=== PATIENT | male | born 1965 | race Caucasian/White ===

== ENCOUNTER 2020-06-21 22:54 | Inpatient (IN) | payer MEDICAID, OTHER ==
[~2020-06-21] VITALS: Ht 170.2 cm; Wt 77.1 kg
[~2020-06-21 22:54] MED LIST: KEPPRA500 M4 ORAL; LAMICTAL25 M1 PO; MIRTAZAPINE30 MG ORAL
[2020-06-21 23:00] VITALS: BP 131/81
--- NOTE | 2020-06-21 23:14 | Emergency Room Report ---
History of Present Illness General Chief Complaint: Seizure Source: Patient, Medical Record, EMS, Law Enforcement Present Illness HPI This is a 54-year-old homeless male who has a history of seizure and alcohol abuse. He presents with chief complaint of feeling suicidal and also had a seizure. Initially, a bystander called 911 because he was laying on the ground. When the paramedics got there he told him that he was suicidal and wanted to hang himself. So police was called and in the process of putting on a hold and take him into a psych facility, he had a 30 to 1-minute episode of tonic-clonic seizure activity. He did have incontinence of his urine. Patient is back to baseline now. Patient said he takes phenobarbital and Keppra. He has been noncompliant. He denies any nausea vomiting. He does have some bleeding from his nose. No fever or chills. Denies any drug use. Admits to alcohol use. Nothing made it better. Nothing made it worse. No hallucination or delusion. Does feel depressed and suicidal. 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 Patient History Past Medical History: see triage record, old chart reviewed, seizures Past Surgical History: none Pertinent Family History: none Social History: Reports: alcohol use Immunizations: other Reviewed Nursing Documentation: PMH: Agreed; PSxH: Agreed Nursing Documentation-PMH Hx Seizures: Yes Review of Systems Eye: Denies: eye pain, blurred vision ENT: Denies: ear pain, nose congestion, throat swelling Respiratory: Denies: cough, shortness of breath Cardiovascular: Denies: chest pain, palpitations Gastrointestinal: Denies: abdominal pain, diarrhea, nausea, vomiting Musculoskeletal: Denies: back pain, joint pain Skin: Denies: rash Psychiatric: Reports: SI Neurological: Denies: headache, numbness Endocrine: Denies: increased thirst, increased urine Hematologic/Lymphatic: Denies: easy bruising All Other Systems: negative except mentioned in HPI Physical Exam Vital Signs Date Time Temp Pulse Resp B/P (MAP) Pulse Ox O2 Delivery O2 Flow Rate FiO2 06/21/20 22:57 99.0 87 16 125/90 (102) 98 Room Air Vitals normal Sp02 EP Interpretation: reviewed, normal General Appearance: well appearing, no apparent distress, alert Head: normocephalic, atraumatic Eyes: bilateral eye PERRL, bilateral eye EOMI ENT: hearing grossly normal, normal pharynx, other - There is abrasion to the bridge of the nose. There is dried blood in the left nares. No oral trauma. Neck: full range of motion, supple, no meningismus Respiratory: chest non-tender, lungs clear, normal breath sounds Cardiovascular #1: regular rate, rhythm, no murmur Gastrointestinal: normal bowel sounds, non tender, no mass, no organomegaly, no bruit, non-distended Musculoskeletal: back normal, normal range of motion, gait/station normal Neurologic: alert Psychiatric: depressed affect Suicide Risk Assessment: Suicidal Ideation: Yes Had intent to initiate attempt: No Pt's plan for suicide attempt: No Has means to complete attempt: No Medical Decision Making Homeless Attestation I, The treating physician, Dr Urban Juarez, has assessed and agrees that patient is medically stable for discharge to an outpatient disposition. Diagnostic Impression: Primary Impression: Epileptic seizure, generalized Additional Impressions: Alcohol intoxication Qualified Codes: F10.920 - Alcohol use, unspecified with intoxication, uncomplicated Suicidal ideation Noncompliance ER Course This patient presents with suicidal ideation and seizure. The seizure was very mild and only last 30 seconds to 1 minute per police. Is secondary to noncompliance with his medication. He has a history of IV heroin use in the past. He has no veins. He with ultrasound was unable to find a peripheral vein. He does have IJ but I see no need at this moment in time to place a central line in him. I gave him his medication orally. Police placed him on a 5150 for his suicidal thoughts. Patient will be medically clear for psychiatric evaluation once alcohol level is less than 150. EKG Diagnostic Results Troponin ordered: No Rate: normal Rhythm: NSR ST Segments: no acute changes Rhythm Strip Diag. Results EP Interpretation: yes Rate: 80 Rhythm: NSR, no PVC's, no ectopy CT/MRI/US Diagnostic Results CT/MRI/US Diagnostic Results : Imaging Test Ordered: CT head Impression Per radiologist negative. Last Vital Signs Date Time Temp Pulse Resp B/P (MAP) Pulse Ox O2 Delivery O2 Flow Rate FiO2 06/21/20 22:57 99.0 87 16 125/90 (102) 98 Room Air Status: improved Disposition: PSYCH HOSP/UNIT Condition: Stable Scripts Lorazepam (ATIVAN) 4 Mg/1 Ml Vial 1 MG IJ DAILY for 30 Days, VIAL Prov: Albino Reynoso MD 06/23/20 Chlordiazepoxide Hcl* (LIBRIUM*) 10 Mg Capsule 20 MG ORAL THREE TIMES A DAY for 30 Days, CAP 0 Refills Prov: Albino Reynoso MD 06/23/20 Levetiracetam (KEPPRA) 500 Mg Tablet 500 MG ORAL EVERY 12 HOURS for 30 Days, #60 TAB 0 Refills Prov: Albino Reynoso MD 06/23/20 Referrals: NOT CHOSEN IPA/,REFERRING (PCP) Urban Juarez MD Jun 21, 2020 23:14
[2020-06-21] MEDS ORDERED: levETIRAcetam 1,000mg/NS100ml 100 ML IVPB ONE (23:15)
[2020-06-22] VITALS (7 sets, daily range): BP systolic 105–135; BP diastolic 64–87
[2020-06-22 00:03] LABS: BASOPHILS % (AUTO) 0.7 % (0.0-2.0); EOSINOPHILS % (AUTO) 1.6 % (0.0-3.0); HEMATOCRIT 48.7 % (42.0-52.0); HEMOGLOBIN 16.3 G/DL (14.2-18.0); LYMPHOCYTES % (AUTO) 37.2 % (20.0-45.0); MEAN CORPUSCULAR VOLUME 98 FL (80-99); MONOCYTES % (AUTO) 12.1 % (1.0-10.0); NEUTROPHILS % (AUTO) 48.5 % (45.0-75.0); PLATELET COUNT 211 K/UL (150-450); RED BLOOD COUNT 4.95 M/UL (4.70-6.10); RED CELL DISTRIBUTION WIDTH 12.7 % (11.6-14.8)
[2020-06-22 00:14] LABS: ANION GAP 9 mmol/L (5-15); BLOOD UREA NITROGEN 16 mg/dL (7-18); CALCIUM 8.5 MG/DL (8.5-10.1); CARBON DIOXIDE 28 MMOL/L (21-32); CHLORIDE 104 MMOL/L (98-107); CREATININE 0.9 MG/DL (0.55-1.30); POTASSIUM 4.1 MMOL/L (3.5-5.1); SODIUM 141 MMOL/L (136-145)
[2020-06-22 00:18] LABS: ALANINE AMINOTRANSFERASE 46 U/L (12-78); ALBUMIN 4.1 G/DL (3.4-5.0); ALKALINE PHOSPHATASE 70 U/L (46-116); ASPARTATE AMINO TRANSFERASE 34 U/L (15-37); BILIRUBIN,TOTAL 0.2 MG/DL (0.2-1.0)
--- NOTE | 2020-06-22 00:45 | Diagnostic Imaging Report ---
EXAM: CT Head Without Intravenous Contrast CLINICAL HISTORY: SZ TECHNIQUE: Axial computed tomography images of the head/brain without intravenous contrast. CTDI is 53.40 mGy and DLP is 1096.90 mGy-cm. One or more of the following dose reduction techniques were used: automated exposure control, adjustment of the mA and/or kV according to patient size, use of iterative reconstruction technique. COMPARISON: No relevant prior studies available. FINDINGS: Brain: Generalized cortical atrophy and white matter low-density compatible chronic ischemic white vascular changes present. No hemorrhage. Ventricles: Unremarkable. No ventriculomegaly. Bones/joints: Unremarkable. No acute fracture. Soft tissues: Unremarkable. Sinuses: Unremarkable as visualized. No acute sinusitis. Mastoid air cells: Unremarkable as visualized. No mastoid effusion. IMPRESSION: No acute intracranial pathology.
[2020-06-22] MEDS ORDERED: PHENobarbital 32.4mg tab ORAL ONE (01:15)
[2020-06-22] MEDS ORDERED: PHENOBARBITAL IM ONE (01:30)
[2020-06-22 03:16] LABS: APPEARANCE,URINE CLEAR; BILIRUBIN, URINE NEGATIVE (NEGATIVE); COLOR,URINE PALE YELLOW; GLUCOSE, URINE (UA) NEGATIVE (NEGATIVE); KETONES,URINE NEGATIVE (NEGATIVE); LEUKOCYTE ESTERASE ,URINE NEGATIVE (NEGATIVE); NITRITE,URINE NEGATIVE (NEGATIVE); PH,URINE 5 (4.5-8.0); UROBILINOGEN,URINE NORMAL MG/DL (0.0-1.0)
[2020-06-22 03:17] LABS: PROTEIN,URINE NEGATIVE (NEGATIVE)
[2020-06-22] MEDS ORDERED: PHENOBARBITAL IVP ONE (08:30)
[2020-06-22] MEDS ORDERED: Miralax 17gm pkt ORAL PRN (12:15)
[2020-06-22] MEDS ORDERED: chlordiazePOXIDE 25mg Cap ORAL PRN (12:15)
[2020-06-22] MEDS ORDERED: LORazepam Inj 2mg/ml 1ml IV PRN (12:15)
[2020-06-22] MEDS ORDERED: Zolpidem 5mg tab ORAL PRN (12:15)
[2020-06-22] MEDS ORDERED: Folic Acid 1 MG, Magnesium Sulfate 2,000 MG, Multivitamin - 12 Injection 10 ML in NS w/... IV SCH (21:00)
[2020-06-22] MEDS ORDERED: Thiamine 100mg in D5W 55ml IVPB SCH (21:00)
[2020-06-22] MEDS: Heparin 5000 units/ml inj SUBQ SCH (21:31)
--- NOTE | 2020-06-22 21:36 | History & Physical ---
History and Physical History & Physicial Prashanth Daniels MD Jun 22, 2020 21:36
[2020-06-23] VITALS: BP 109/69
--- NOTE | 2020-06-23 00:14 | History and Physical Report ---
DATE OF ADMISSION: 06/22/2020 CHIEF COMPLAINT: Seizure activity. HISTORY OF PRESENT ILLNESS: This is a 54-year-old homeless gentleman with past medical history significant for history of alcoholism as well as seizure disorder, who presented to the emergency department after he was noted to have seizure activity. The patient was initially seen by bystander who called 911 and it was noted the patient lied down on the ground. paramedics, the patient was noted to have seizure activity, wanted to hang himself, and suicidal ideation, so the police was called in the process of putting the patient on hold and take him to the psychiatric facility. A 30 minutes' episode of tonic-clonic seizure activity. The patient subsequently was brought into the emergency department. The patient said that he was taking phenobarbital as well as Keppra and he has been noncompliant with it. Denies any nausea or vomiting. Denies any fever or chills. Denies any loss of consciousness. Shortly after initial evaluation in the emergency department, the patient was admitted to the hospital with uncontrolled seizure as well as alcohol-withdrawal seizure with history of alcoholism. PAST MEDICAL HISTORY AND PAST SURGICAL HISTORY: As above. History of seizure disorder as well as alcoholism. MEDICATIONS: At home, he used to be on Keppra and phenobarbital; however, he is noncompliant with medication. ALLERGIES: To Haldol. REVIEW OF SYSTEMS: Mostly as above. Denies any dysuria, frequency, or hematuria. PHYSICAL EXAMINATION: VITAL SIGNS: On admission, temperature 99, pulse of 87, respirations 16, and blood pressure 125/90. GENERAL: The patient is awake and responsive, however, very somnolent and sleepy. HEAD AND NECK: Pupils equal and reactive to light. Extraocular movements are intact. Neck was supple. No JVD. LUNGS: Good air entry. No wheezing or rales. Poor inspiratory effort. HEART: S1, S2. Regular rhythm. No gallops. ABDOMEN: Soft, nondistended, nontender. Positive bowel sounds. EXTREMITIES: No cyanosis, clubbing, or edema. NEUROLOGIC: Very limited secondary to the patient's status; however, he is moving extremities spontaneously. RECTAL: Refused and deferred. GENITOURINARY: Refused and deferred. LABORATORY AND DIAGNOSTIC DATA: Laboratory on admission is WBC of 8.0, hemoglobin 16, hematocrit 48, and platelet is 211,000. Sodium 141, potassium 4.1, chloride 104, bicarb 28, BUN 16, creatinine 0.9, GFR greater than 60, and glucose is 123. Urine drug screen positive for benzos. Alcohol level is 275 and repeat one is 200. Urinalysis is unremarkable. The patient had a CT of the head, no acute intracranial pathology. ASSESSMENT: 1. Uncontrolled seizure. 2. Alcoholism. 3. Suicidal ideation. PLAN: Admit the patient to monitored unit. We will follow up laboratory. Seizure precaution. Resume home medication. Code status is full code. DVT prophylaxis, heparin subcu. Prashanth Daniels M.D. DR: Nigel JOB#: [id number] CC:
[2020-06-23 04:00] VITALS: BP 107/64
[2020-06-23 08:04] VITALS: BP 111/69
[2020-06-23] MEDS: Heparin 5000 units/ml inj SUBQ SCH (08:47)
[2020-06-23 09:22] LABS: BASOPHILS % (AUTO) 1.4 % (0.0-2.0); EOSINOPHILS % (AUTO) 3.9 % (0.0-3.0); HEMATOCRIT 43.4 % (42.0-52.0); HEMOGLOBIN 14.5 G/DL (14.2-18.0); LYMPHOCYTES % (AUTO) 29.8 % (20.0-45.0); MEAN CORPUSCULAR VOLUME 99 FL (80-99); MONOCYTES % (AUTO) 10.1 % (1.0-10.0); NEUTROPHILS % (AUTO) 54.8 % (45.0-75.0); PLATELET COUNT 172 K/UL (150-450); RED BLOOD COUNT 4.41 M/UL (4.70-6.10); RED CELL DISTRIBUTION WIDTH 12.7 % (11.6-14.8)
[2020-06-23 09:48] LABS: ALANINE AMINOTRANSFERASE 42 U/L (12-78); ALBUMIN 3.4 G/DL (3.4-5.0); ALBUMIN/GLOBULIN RATIO 1.2 (1.0-2.7); ALKALINE PHOSPHATASE 107 U/L (46-116); ANION GAP 8 mmol/L (5-15); ASPARTATE AMINO TRANSFERASE 40 U/L (15-37); BILIRUBIN,TOTAL 0.3 MG/DL (0.2-1.0); BLOOD UREA NITROGEN 18 mg/dL (7-18); CALCIUM 8.9 MG/DL (8.5-10.1); CARBON DIOXIDE 28 MMOL/L (21-32); CHLORIDE 101 MMOL/L (98-107); CREATININE 0.9 MG/DL (0.55-1.30); POTASSIUM 3.7 MMOL/L (3.5-5.1); SODIUM 137 MMOL/L (136-145)
[2020-06-23 12:00] VITALS: BP 122/74
[2020-06-23] MEDS ORDERED: KEPPRA500 M4 ORAL (12:09)
[2020-06-23] MEDS ORDERED: LIBRIUM10 MG ORAL (12:12)
--- NOTE | 2020-06-23 12:31 | Consultation ---
History of Present Illness General Date patient seen: Jun 23, 2020 Chief Complaint: Seizure Present Illness HPI 54 year old male with hx of preexisting seizure, ETOH abuse. presented to ER b/o generalized seizures. His ETOH level was > 200 and his Keprra level was subtherapeutic. He is admitted to telemetry for further management. Allergies: Coded Allergies: HALOPERIDOL (Verified Allergy, Unknown, 05/07/11) Medication History Scheduled Chlordiazepoxide Hcl* (Librium*), 20 MG ORAL THREE TIMES A DAY Levetiracetam (Keppra), 500 MG ORAL EVERY 12 HOURS Discontinued Medications Lamotrigine (Lamictal), 50 MG PO BID, (Reported) Discontinued Reason: Pt stopped taking med Levetiracetam (Keppra), 500 MG ORAL EVERY 12 HOURS, (Reported) Discontinued Reason: Pt stopped taking med Mirtazapine* (Remeron*), 30 MG ORAL BEDTIME, (Reported) Discontinued Reason: Pt stopped taking med Patient History Healthcare decision maker Resuscitation status Advanced Directive on File Past Medical/Surgical History Past Medical/Surgical History: (1) Epileptic seizure, generalized (2) Alcohol intoxication (3) Noncompliance Review of Systems All Other Systems: negative except mentioned in HPI Physical Exam General Appearance: WD/WN, no apparent distress Lines, tubes and drains: peripheral, central line HEENT: normocephalic, atraumatic Neck: non-tender, supple Respiratory/Chest: chest wall non-tender, lungs clear, normal breath sounds Cardiovascular/Chest: normal peripheral pulses, normal rate Abdomen: normal bowel sounds, non tender Genitourinary/Rectal: normal genital exam Extremities: normal range of motion Last 24 Hour Vital Signs Date Time Temp Pulse Resp B/P (MAP) Pulse Ox O2 Delivery O2 Flow Rate FiO2 06/23/20 12:00 97.9 86 20 122/74 (90) 98 06/23/20 09:00 Room Air 06/23/20 08:04 97.7 95 20 111/69 (83) 95 06/23/20 08:00 72 06/23/20 04:00 98.9 79 20 107/64 (78) 93 06/23/20 04:00 80 06/23/20 00:00 97.6 81 18 109/69 (82) 93 06/23/20 00:00 81 06/22/20 21:00 Room Air 06/22/20 20:00 98.7 82 20 105/64 (78) 95 06/22/20 20:00 84 06/22/20 17:39 98.1 102 20 115/71 (86) 94 06/22/20 17:30 98.2 84 18 132/81 100 Room Air 99 06/22/20 15:56 98.2 90 17 128/76 100 Room Air 99 Intake and Output 06/22/20 06/23/20 19:00 07:00 Intake Total 1680 ml Output Total 700 ml Balance 980 ml Intake Oral 1680 ml Output Urine Total 700 ml # Voids 3 # Bowel Movements 1 Laboratory Tests Test 06/23/20 08:55 White Blood Count 6.0 K/UL (4.8-10.8) Red Blood Count 4.41 M/UL (4.70-6.10) L Hemoglobin 14.5 G/DL (14.2-18.0) Hematocrit 43.4 % (42.0-52.0) Mean Corpuscular Volume 99 FL (80-99) Mean Corpuscular Hemoglobin 32.9 PG (27.0-31.0) H Mean Corpuscular Hemoglobin Concent 33.4 G/DL (32.0-36.0) Red Cell Distribution Width 12.7 % (11.6-14.8) Platelet Count 172 K/UL (150-450) Mean Platelet Volume 6.9 FL (6.5-10.1) Neutrophils (%) (Auto) 54.8 % (45.0-75.0) Lymphocytes (%) (Auto) 29.8 % (20.0-45.0) Monocytes (%) (Auto) 10.1 % (1.0-10.0) H Eosinophils (%) (Auto) 3.9 % (0.0-3.0) H Basophils (%) (Auto) 1.4 % (0.0-2.0) Sodium Level 137 MMOL/L (136-145) Potassium Level 3.7 MMOL/L (3.5-5.1) Chloride Level 101 MMOL/L (98-107) Carbon Dioxide Level 28 MMOL/L (21-32) Anion Gap 8 mmol/L (5-15) Blood Urea Nitrogen 18 mg/dL (7-18) Creatinine 0.9 MG/DL (0.55-1.30) Estimat Glomerular Filtration Rate > 60 mL/min (>60) Glucose Level 129 MG/DL (74-106) H Calcium Level 8.9 MG/DL (8.5-10.1) Total Bilirubin 0.3 MG/DL (0.2-1.0) Aspartate Amino Transf (AST/SGOT) 40 U/L (15-37) H Alanine Aminotransferase (ALT/SGPT) 42 U/L (12-78) Alkaline Phosphatase 107 U/L (46-116) Total Protein 6.3 G/DL (6.4-8.2) L Albumin 3.4 G/DL (3.4-5.0) Globulin 2.9 g/dL Albumin/Globulin Ratio 1.2 (1.0-2.7) Microbiology Date/Time Source Procedure Growth Status 06/22/20 17:20 Rectum Received Height (Feet): 5 Height (Inches): 7.00 Weight (Pounds): 170 Medications Current Medications Medications (Trade) Dose Ordered Sig/Serena Route PRN Reason Start Time Stop Time Status Last Admin Dose Admin Acetaminophen (Tylenol) 650 mg Q4H PRN ORAL fever 06/22/20 12:15 07/22/20 12:14 Chlordiazepoxide (Librium) 25 mg Q6H PRN ORAL Agitation 06/22/20 12:15 06/29/20 12:14 06/22/20 21:30 Dextrose (Dextrose 50%) 25 ml Q30M PRN IV Hypoglycemia 06/22/20 12:15 09/20/20 12:14 Dextrose (Dextrose 50%) 50 ml Q30M PRN IV Hypoglycemia 06/22/20 12:15 09/20/20 12:14 Folic Acid 1 mg/ Magnesium Sulfate 2000 mg/ Multivitamins 10 ml/Potassium Chloride/Sodium Chloride 1,014.2 ml @ 124.876 mls/hr Q24H IV 06/22/20 21:00 07/22/20 20:59 06/22/20 22:08 Heparin Sodium (Porcine) (Heparin 5000 units/ml) 5,000 units EVERY 12 HOURS SUBQ 06/22/20 21:00 08/06/20 20:59 06/23/20 08:47 Levetiracetam (Keppra) 1,000 mg EVERY 12 HOURS ORAL 06/22/20 21:00 07/22/20 20:59 06/23/20 08:40 Lorazepam (Ativan 2mg/ml 1ml) 2 mg Q2H PRN IV seizure 06/22/20 12:15 06/29/20 12:14 Ondansetron HCl (Zofran) 4 mg Q6H PRN IVP Nausea & Vomiting 06/22/20 12:15 07/22/20 12:14 Polyethylene Glycol (Miralax) 17 gm HSPRN PRN ORAL Constipation 06/22/20 12:15 07/22/20 12:14 Thiamine HCl 100 mg/Dextrose 56 ml @ 112 mls/hr Q24H IVPB 06/22/20 21:00 07/22/20 20:59 06/22/20 21:04 Zolpidem Tartrate (Ambien) 5 mg HSPRN PRN ORAL Insomnia 06/22/20 12:15 06/29/20 12:14 Assessment/Plan Problem List: (1) Epileptic seizure, generalized ICD Codes: G40.309 - Generalized idiopathic epilepsy and epileptic syndromes, not intractable, without status epilepticus SNOMED: 93417649 (2) Noncompliance ICD Codes: Z91.19 - Patient's noncompliance with other medical treatment and regimen SNOMED: 2150416 (3) Alcohol intoxication ICD Codes: F10.929 - Alcohol use, unspecified with intoxication, unspecified SNOMED: 44231274 Qualifiers: Qualified Codes: F10.920 - Alcohol use, unspecified with intoxication, uncomplicated (4) Homelessness ICD Codes: Z59.0 - Homelessness SNOMED: 08230539 Assessment/Plan: Iv fluids banana bag check electrolytes resume Keppra Pt has NOT been taking his seizure meds and instead he is consuming ETOH. I prescribed his Keppra. He wanted also some benzo, either Librium or Ativan. His mood was very upbeat. There was no indication that he might harm himself or anybody else. He is DEFINITELY NOT suicidal. dc home today Albino Reynoso MD Jun 23, 2020 12:31
[2020-06-23] MEDS ORDERED: ATIVAN4 MG/1 ML IJ (13:47)
--- NOTE | 2020-06-23 14:25 | Internal Med Progress Note ---
Subjective Physician Name Prashanth Daniels Attending Physician Prashanth Daniels MD Current Medications Medications (Trade) Dose Ordered Sig/Serena Route PRN Reason Start Time Stop Time Status Last Admin Dose Admin Acetaminophen (Tylenol) 650 mg Q4H PRN ORAL fever 06/22/20 12:15 07/22/20 12:14 Chlordiazepoxide (Librium) 25 mg Q6H PRN ORAL Agitation 06/22/20 12:15 06/29/20 12:14 06/22/20 21:30 Dextrose (Dextrose 50%) 25 ml Q30M PRN IV Hypoglycemia 06/22/20 12:15 09/20/20 12:14 Dextrose (Dextrose 50%) 50 ml Q30M PRN IV Hypoglycemia 06/22/20 12:15 09/20/20 12:14 Folic Acid 1 mg/ Magnesium Sulfate 2000 mg/ Multivitamins 10 ml/Potassium Chloride/Sodium Chloride 1,014.2 ml @ 124.876 mls/hr Q24H IV 06/22/20 21:00 07/22/20 20:59 06/22/20 22:08 Heparin Sodium (Porcine) (Heparin 5000 units/ml) 5,000 units EVERY 12 HOURS SUBQ 06/22/20 21:00 08/06/20 20:59 06/23/20 08:47 Levetiracetam (Keppra) 1,000 mg EVERY 12 HOURS ORAL 06/22/20 21:00 07/22/20 20:59 06/23/20 08:40 Lorazepam (Ativan 2mg/ml 1ml) 2 mg Q2H PRN IV seizure 06/22/20 12:15 06/29/20 12:14 Ondansetron HCl (Zofran) 4 mg Q6H PRN IVP Nausea & Vomiting 06/22/20 12:15 07/22/20 12:14 Polyethylene Glycol (Miralax) 17 gm HSPRN PRN ORAL Constipation 06/22/20 12:15 07/22/20 12:14 Thiamine HCl 100 mg/Dextrose 56 ml @ 112 mls/hr Q24H IVPB 06/22/20 21:00 07/22/20 20:59 06/22/20 21:04 Zolpidem Tartrate (Ambien) 5 mg HSPRN PRN ORAL Insomnia 06/22/20 12:15 06/29/20 12:14 Allergies: Coded Allergies: HALOPERIDOL (Verified Allergy, Unknown, 05/07/11) Subjective awake, alert, responsive, denies any chest pain or Shortness of breath. Objective Last Vital Signs Date Time Temp Pulse Resp B/P (MAP) Pulse Ox O2 Delivery O2 Flow Rate FiO2 06/23/20 12:00 86 06/23/20 12:00 97.9 20 122/74 (90) 98 06/23/20 09:00 Room Air 06/22/20 17:30 99 Laboratory Tests Test 06/23/20 08:55 White Blood Count 6.0 K/UL (4.8-10.8) Red Blood Count 4.41 M/UL (4.70-6.10) L Hemoglobin 14.5 G/DL (14.2-18.0) Hematocrit 43.4 % (42.0-52.0) Mean Corpuscular Volume 99 FL (80-99) Mean Corpuscular Hemoglobin 32.9 PG (27.0-31.0) H Mean Corpuscular Hemoglobin Concent 33.4 G/DL (32.0-36.0) Red Cell Distribution Width 12.7 % (11.6-14.8) Platelet Count 172 K/UL (150-450) Mean Platelet Volume 6.9 FL (6.5-10.1) Neutrophils (%) (Auto) 54.8 % (45.0-75.0) Lymphocytes (%) (Auto) 29.8 % (20.0-45.0) Monocytes (%) (Auto) 10.1 % (1.0-10.0) H Eosinophils (%) (Auto) 3.9 % (0.0-3.0) H Basophils (%) (Auto) 1.4 % (0.0-2.0) Sodium Level 137 MMOL/L (136-145) Potassium Level 3.7 MMOL/L (3.5-5.1) Chloride Level 101 MMOL/L (98-107) Carbon Dioxide Level 28 MMOL/L (21-32) Anion Gap 8 mmol/L (5-15) Blood Urea Nitrogen 18 mg/dL (7-18) Creatinine 0.9 MG/DL (0.55-1.30) Estimat Glomerular Filtration Rate > 60 mL/min (>60) Glucose Level 129 MG/DL (74-106) H Calcium Level 8.9 MG/DL (8.5-10.1) Total Bilirubin 0.3 MG/DL (0.2-1.0) Aspartate Amino Transf (AST/SGOT) 40 U/L (15-37) H Alanine Aminotransferase (ALT/SGPT) 42 U/L (12-78) Alkaline Phosphatase 107 U/L (46-116) Total Protein 6.3 G/DL (6.4-8.2) L Albumin 3.4 G/DL (3.4-5.0) Globulin 2.9 g/dL Albumin/Globulin Ratio 1.2 (1.0-2.7) Microbiology Date/Time Source Procedure Growth Status 06/22/20 17:20 Rectum Received 06/21/20 23:00 Nasopharynx SARS-CoV-2 RdRp Gene Assay - Final Complete Intake and Output 06/22/20 06/23/20 19:00 07:00 Intake Total 1680 ml Output Total 700 ml Balance 980 ml Intake Oral 1680 ml Output Urine Total 700 ml # Voids 3 # Bowel Movements 1 Objective General: No acute distress, awake and alert HEENT: NCAT, sclera anicteric, PERRL, EOMI. Neck: Supple, no significant jugular venous distention, Lungs: Good inspiratory effort, no accessory muscle use, clear to auscultation bilaterally, no Wheeze or Rales. Heart: Regular rate and rhythm, normal S1/S2, no murmurs/gallops Abdomen: soft, nontender, nondistended. Normoactive bowel sounds. / Rectal: Refused and deferred. Extremities: No Cyanosis , clubbing or edema. Neuro: A&O x 3, Able to move all extremities Skin: warm, no rashes or lesions Psych: Normal mood and affect Assessment/Plan Assessment/Plan 1. Uncontrolled seizure. 2. Alcoholism. 3. Suicidal ideation. PLAN: discharge home today. Prashanth Daniels MD Jun 23, 2020 14:25
[2020-06-23] MEDS ORDERED: NS 275ml ONE (14:51)
[2020-06-23] MEDS ORDERED: Tubing IV Secondary IV ONE (14:51)
--- NOTE | 2020-06-23 23:47 | Psychiatric Progress Note ---
Psychiatry Progress Note Psychiatry Progress Note Allergies: Coded Allergies: HALOPERIDOL (Verified Allergy, Unknown, 05/07/11) Objective Data Height (Feet): 5 Height (Inches): 7.00 Weight (Pounds): 170 General Appearance: WD/WN, no apparent distress Monique Spivey MD Jun 23, 2020 23:47
--- NOTE | 2020-06-24 04:59 | Consultation ---
DATE OF CONSULTATION: CONSULTING PHYSICIAN: Monique Spivey MD HISTORY OF PRESENT ILLNESS: This is a 54-year-old male with a history of alcohol dependence who has been admitted to the hospital for a 5150. He also has positive benzodiazepine on urine toxicology. He stated that he was suicidal. He was placed on a 5150 by [employer]. Upon evaluation, the patient was eating well, but per sitter, the patient had a second course of his food. The patient was able to understand, process, communicate, and discuss his needs. The patient did not have any depressive or manic symptoms. PAST PSYCHIATRIC HISTORY: Nonsignificant. ALLERGIES: Haloperidol. SUBSTANCE ABUSE HISTORY: Alcohol and benzodiazepine dependence. MENTAL STATUS EXAMINATION: Alert and oriented times self, place, and situation. Mood is neutral. Affect is blunted, congruent with mood. Thought process is concrete. Thought content, no suicidal or homicidal ideation. Cognition is intact. Insight and judgment are fair. ASSESSMENT: [place] Alcohol dependence. Benzodiazepine dependence. PLAN: 1. Continue current medication. 2. Provide the patient with reality orientation, supportive therapy. 3. Continue to follow and readjust the medications. 4. The patient is not meeting the criteria for 5150. He was given referral. Monique Spivey M.D. DR: CHIOMA JOB#: [id number] CC:
--- NOTE | 2020-06-25 14:58 | Cardiology Report ---
APPROVED REPORT EKG Measurement Heart [id number] <Conclusion> Normal sinus rhythm Left axis deviation Abnormal ECG
--- NOTE | 2020-06-25 15:03 | Cardiology Report ---
APPROVED REPORT EKG Measurement Heart [id number] CA 166P42 [id number] <Conclusion> Normal sinus rhythm Left axis deviation Abnormal ECG
--- NOTE | 2020-06-26 01:31 | Discharge Summary ---
Discharge Summary Discharge Summary _ DATE OF ADMISSION: 06/22/2020 DATE OF DISCHARGE: 06/23/2020 ADMITTING MD: Dr. Prashanth Daniels CONSULTANTS: Dr. Albino Spivey [facility] HOSPITAL COURSE: Patient is a 54-year-old homeless gentleman with past medical history significant for alcoholism as well as seizure disorder, who presented to the emergency department after he was noted to have a seizure activity. Patient was initially seen by a bystander who called 911. It was noted that the patient lives [place]. Paramedics noted that patient had seizure activity. Patient also wanted to harm himself and had suicidal ideation, police was also called in for the process of putting the patient on hold to take him to psychiatric facility. Patient was subsequently taken to emergency department. Patient stated he was taking phenobarbital as well as Keppra and has been noncompliant. He denied any nausea or vomiting. Denied any fever or chills. Upon evaluation at ED, vital signs were stable. Seizure episode was very mild and lasted only for 30 seconds to 1 minute per police. Seizure could be secondary to noncompliance with medication. Patient also has history of IV heroin use in the past. EKG was in normal sinus rhythm. Head CT was negative. Labs were unremarkable. He was admitted to monitored floor. He was placed on seizure precautions. He was resumed on Keppra. He was started on banana bag. He underwent psychiatric evaluation. Patient was able to process, communicate and discuss his needs. Patient did not have any depressive or manic symptoms. He was provided with reality orientation and supportive therapy. Patient did not meet criteria for 5150. There was no seizure episode. Patient's mood was upbeat. There was no indication that he might harm himself or anyone else. Patient is not suicidal. He was given prescriptions and was cleared for discharge. FINAL DIAGNOSES: Uncontrolled seizure due to noncompliance Alcohol dependence Benzodiazepine dependence Homelessness DISPOSITION: The treating physician has assessed that the patient is medically stable for discharge to an outstretched disposition." DISCHARGE MEDICATIONS: Refer to Discharge Medication List. DISCHARGE INSTRUCTIONS: Follow-up in a week. I have been assigned to complete a discharge summary on this account, I was not involved with the patient's management.--SOCORRO Schmidt Jacqueline Robles NP Jun 26, 2020 01:31
== END 2020-06-23 13:00 | disposition home or self-care (01) | DRG 53 ==
LOC: EDUNIT# 22:54 → EDBD 22:54 → EMR 23:03 → EDBEDREQ 06-22 09:37 → 2E 06-22 10:00 → EDBEDREQ 06-22 17:08
DX: G40.409 Other generalized epilepsy and epileptic syndromes, not intractable, without status epilepticus (principal); R45.851 Suicidal ideations; Z59.0 Homelessness; Z88.8 Allergy status to other drugs, medicaments and biological substances; Z91.14 Patient's other noncompliance with medication regimen; F10.20 Alcohol dependence, uncomplicated; F13.20 Sedative, hypnotic or anxiolytic dependence, uncomplicated
CPT/HCPCS: 36415; 70450; 80053; 80184; 80307; 81003; 85025; 87081; 93005; 96372; 96374; 99285; G0480; U0002